=== PATIENT | female | born 1935 | race African-American/Black ===

== ENCOUNTER 2016-12-05 19:11 | Emergency (ER) | payer MEDICARE, BC ==
[~2016-12-05] VITALS: Ht 165.1 cm; Wt 103.2 kg
[~2016-12-05 19:11] MED LIST: ACIPHEX20 MG; ACTONEL35 MG; ALBUTEROL90 MCG IN; AVELOX400 MG OR; BENICAR20 MG PO; DOXYCYC MONO100 M3 PO; DOXYCYCL HYC100 MG PO; ELAVIL50 MG PO; FOLIC ACID1 MG PO; LASIX 40 MG40 MG/TAB PO; LASIX20 MG PO; LISINOPRIL20 MG PO; LORTAB 7.5 PO; LYRICA; LYRICA50 MG PO; MEDDOSEPAK PO; MELOXICAM7.5 MG; METFORMIN500 MG; METFORMIN500 MG PO; METOPROL TAR25 MG PO; METOPROL TAR50 MG PO; MICARDIS80 MG; NORVASC PO; PRAVACHOL40 MG PO; PRAVASTATIN40 MG PO; PRILOSEC20 MG/CAP PO; PROVENTIL0.083 %; SIMVASTATIN80 MG; SYNTHROID50 MCG PO; TORADOL PO; TRAMADOL; TRAMADOL HCL50 MG PO; VENTOLIN HFA IN; VESICARE5 MG; ZESTRIL/PRI20 MG/TAB PO; ZITHROMAX250 MG PO; ZPAK PO
[2016-12-05] MEDS ORDERED: AMITIZA24 MCG PO (20:01)
[2016-12-05] MEDS ORDERED: LOSARTAN POT25 MG PO (20:02)
[2016-12-05] MEDS ORDERED: MUCINEX600 MG PO (20:02)
[2016-12-05] MEDS ORDERED: [UNRECOGNIZED DRUG - OTHER] (20:04)
[2016-12-05 20:17] LABS: HEMATOCRIT 41.7 % (37.0-47.0); HEMOGLOBIN 13.1 g/dl (12.0-16.0); IMMATURE GRANULOCYTES 0.4 % (0.0-1.0); MEAN CELL VOLUME 86.9 fL CALC (80.0-100.0); MEAN CORPUSCULAR HGB 27.3 pG CALC (26.0-32.0); MEAN CORPUSCULAR HGB CONC 31.4 g/L CALC (32.0-36.0); NEUT# 2.9 thou/uL (2.00-7.15); RED BLOOD COUNT 4.8 mill/uL (4.20-5.60)
[2016-12-05 20:36] LABS: ALBUMIN 4.6 g/dL (3.2-5.0); ALKALINE PHOSPHATASE 79 u/l (38-126); ANION GAP 17 (6-22 (CALC)); BILIRUBIN, TOTAL 0.5 mg/dL (0.0-1.4); BUN 21 mg/dL (8-23); BUN/CREATININE RATIO 18 (12-20 (CALC)); CALCIUM 10.3 mg/dL (8.4-10.2); CARBON DIOXIDE 28 mmol/l (22-30); CHLORIDE 104 mmol/l (95-108); CREATININE 1.1 mg/dL (0.5-1.0); GFR 48 ML/MIN (>=60 (CALC)); GFR FOR AFR.AMER. 58 ML/MIN (>=60 (CALC)); GLUCOSE 93 mg/dL (82-115); INTERNATIONAL NORMALIZED RATIO 1.1 RATIO (0.7-1.3); POTASSIUM 4.3 mmol/l (3.5-5.1); PROTHROMBIN TIME 12.2 SECONDS (9.0-12.5); SGOT/AST 27 u/l (9-36); SGPT/ALT 32 u/l (11-66); SODIUM 144 mmol/l (137-146)
[2016-12-05 20:41] LABS: INFLUENZA A NONE DETECTED (NONE DETECT); INFLUENZA B NONE DETECTED (NONE DETECT)
[2016-12-05 20:47] LABS: MYOGLOBIN 58 ng/mL (0 - 62)
[2016-12-05 22:10] LABS: URINE BILIRUBIN - DIPSTICK NEGATIVE (NEGATIVE); URINE BLOOD DIPSTICK NEGATIVE (NEGATIVE); URINE CLARITY SLIGHT CLOUDY; URINE COLOR YELLOW; URINE GLUCOSE - DIPSTICK NEGATIVE (NEGATIVE); URINE KETONE NEGATIVE (NEGATIVE); URINE LEUK ESTERASE TRACE (NEGATIVE); URINE NITRITE - DIPSTICK NEGATIVE (Negative); URINE PH 5.5 (4.5-8.0); URINE PROTEIN - DIPSTICK NEGATIVE (NEG-TRACE); URINE SPECIFIC GRAVITY >=1.030; URINE UROBILINOGEN - DIPSTICK 0.2 E.U./dL (0.2)
[2016-12-05] MEDS ORDERED: ROBITUSSIN200 MG/10 PO (23:28)
[2016-12-05] MEDS ORDERED: AMOXICILLIN500 MG PO (23:28)
[2016-12-05 23:51] VITALS: BP 137/70
== END 2016-12-05 23:51 | disposition home or self-care (01) ==
LOC: ED 19:11
PROVIDERS: Emergency Medicine
DX: J44.1 Chronic obstructive pulmonary disease with (acute) exacerbation (principal); R05 Cough; R53.1 Weakness; R06.02 Shortness of breath; I10 Essential (primary) hypertension

== ENCOUNTER 2018-04-27 21:38 | Emergency (ER) | payer MEDICARE, BC ==
[~2018-04-27] VITALS: Ht 177.8 cm; Wt 105.2 kg
[~2018-04-27 21:38] MED LIST changes: +AMITIZA24 MCG PO; +AMOXICILLIN500 MG PO; +LOSARTAN POT25 MG PO; +MUCINEX600 MG PO; +ROBITUSSIN200 MG/10 PO; +[UNRECOGNIZED DRUG - OTHER]
[2018-04-27 22:36] LABS: HEMATOCRIT 37.7 % (37.0-47.0); HEMOGLOBIN 11.8 g/dl (12.0-16.0); IMMATURE GRANULOCYTES 0.3 % (0.0-5.0); MEAN CELL VOLUME 86.9 fL CALC (80.0-100.0); MEAN CORPUSCULAR HGB 27.2 pG CALC (26.0-32.0); MEAN CORPUSCULAR HGB CONC 31.3 g/L CALC (32.0-36.0); NEUT# 2.76 thou/uL (2.00-7.15); RED BLOOD COUNT 4.34 mill/uL (4.20-5.60); RED CELL DISTRI WIDTH 13.5 % (11.5-15.5)
[2018-04-27 22:49] LABS: ALBUMIN 3.8 g/dL (3.2-5.0); BILIRUBIN, TOTAL 0.3 mg/dL (0.0-1.4); CREATININE 1.3 mg/dL (0.5-1.0); POTASSIUM 3.6 mmol/l (3.5-5.1); TOTAL PROTEIN 7.3 g/dL (6.3-8.2)
[2018-04-27] MEDS ORDERED: TRADJENTA5 MG PO (22:51)
[2018-04-27] MEDS ORDERED: LYRICA150 M1 PO (22:53)
[2018-04-28 00:13] LABS: URINE BILIRUBIN - DIPSTICK NEGATIVE (NEGATIVE); URINE BLOOD DIPSTICK NEGATIVE (NEGATIVE); URINE COLOR YELLOW; URINE GLUCOSE - DIPSTICK NEGATIVE (NEGATIVE); URINE KETONE NEGATIVE (NEGATIVE); URINE NITRITE - DIPSTICK NEGATIVE (Negative); URINE PROTEIN - DIPSTICK NEGATIVE (NEG-TRACE); URINE SPECIFIC GRAVITY 1.015; URINE UROBILINOGEN - DIPSTICK 0.2 E.U./dL (0.2)
[2018-04-28 00:14] LABS: URINE CLARITY CLOUDY; URINE LEUK ESTERASE SMALL (NEGATIVE)
[2018-04-28 00:19] LABS: URINE BACTERIA FEW hpf; URINE HYALINE CAST FEW lpf (NONE-RARE); URINE MUCUS MODERATE hpf (NONE-FEW); URINE SQUAMOUS EPITHELIAL CELL MODERATE EPI/hpf (0-FEW)
[2018-04-28] MEDS ORDERED: MACRODANTIN100 MG PO (00:24)
[2018-04-28] MEDS ORDERED: MIRALAX3350 N1 PO (00:24)
[2018-04-28 00:43] VITALS: BP 142/72
== END 2018-04-28 00:43 | disposition home or self-care (01) ==
LOC: ED 21:38
PROVIDERS: Family Medicine
DX: N39.0 Urinary tract infection, site not specified (principal); K59.00 Constipation, unspecified; I10 Essential (primary) hypertension

== ENCOUNTER 2018-06-14 14:35 | Observation (INO) | payer MEDICARE, BC ==
[~2018-06-14] VITALS: Ht 177.8 cm; Wt 103.9 kg
[~2018-06-14 14:35] MED LIST changes: +LYRICA150 M1 PO; +MACRODANTIN100 MG PO; +MIRALAX3350 N1 PO; +TRADJENTA5 MG PO
[2018-06-14 15:49] LABS: HEMATOCRIT 39.9 % (37.0-47.0); HEMOGLOBIN 12.7 g/dl (12.0-16.0); IMMATURE GRANULOCYTES 0.4 % (0.0-5.0); MEAN CELL VOLUME 86.2 fL CALC (80.0-100.0); MEAN CORPUSCULAR HGB 27.4 pG CALC (26.0-32.0); MEAN CORPUSCULAR HGB CONC 31.8 g/L CALC (32.0-36.0); NEUT# 4.38 thou/uL (2.00-7.15); RED BLOOD COUNT 4.63 mill/uL (4.20-5.60); RED CELL DISTRI WIDTH 14.7 % (11.5-15.5)
[2018-06-14 16:11] LABS: INFLUENZA A NONE DETECTED (NONE DETECT); INFLUENZA B NONE DETECTED (NONE DETECT)
[2018-06-14 16:13] LABS: ANION GAP 12 (6-22 (CALC)); BUN 22 mg/dL (8-23); BUN/CREATININE RATIO 19 (12-20 (CALC)); CARBON DIOXIDE 29 mmol/l (22-30); CHLORIDE 107 mmol/l (95-108); CREATININE 1.2 mg/dL (0.5-1.0); GFR 43 ML/MIN (>=60 (CALC)); GFR FOR AFR.AMER. 52 ML/MIN (>=60 (CALC)); POTASSIUM 4.1 mmol/l (3.5-5.1); SODIUM 143 mmol/l (137-146)
[2018-06-14] MEDS ORDERED: TRADJENTA5 MG PO (17:32)
[2018-06-14] MEDS ORDERED: AMLODIPINE BESYL5 MG PO (17:32)
[2018-06-14] MEDS ORDERED: TRAMADOL HCL50 MG PO (17:36)
[2018-06-14 17:51] VITALS: BP 140/81
[2018-06-15 00:43] VITALS: BP 130/71
[2018-06-15 04:00] VITALS: BP 121/69
[2018-06-15 06:09] LABS: HEMATOCRIT 36.8 % (37.0-47.0); HEMOGLOBIN 11.8 g/dl (12.0-16.0); IMMATURE GRANULOCYTES 0.3 % (0.0-5.0); MEAN CELL VOLUME 86.2 fL CALC (80.0-100.0); MEAN CORPUSCULAR HGB 27.6 pG CALC (26.0-32.0); MEAN CORPUSCULAR HGB CONC 32.1 g/L CALC (32.0-36.0); NEUT# 2.03 thou/uL (2.00-7.15); RED BLOOD COUNT 4.27 mill/uL (4.20-5.60); RED CELL DISTRI WIDTH 14.8 % (11.5-15.5)
[2018-06-15 06:37] LABS: ALBUMIN 3.5 g/dL (3.2-5.0); BILIRUBIN, TOTAL 0.4 mg/dL (0.0-1.4); CREATININE 1.1 mg/dL (0.5-1.0); MAGNESIUM 1.5 mg/dL (1.6-2.3); POTASSIUM 4.1 mmol/l (3.5-5.1); TOTAL PROTEIN 6.7 g/dL (6.3-8.2)
[2018-06-15 08:19] VITALS: BP 123/44
[2018-06-15 10:49] LABS: CHOLESTEROL HDL RATIO 3.6 (<4.4 (CALC))
[2018-06-15 11:20] VITALS: BP 126/70
== END 2018-06-15 14:14 | disposition home or self-care (01) ==
LOC: ED 14:35 → ED-I 16:43 → ED 16:57 → MS2 16:58
PROVIDERS: Family Medicine; Nurse Practitioner Family; ADMIT Internal Medicine Nephrology; ATTEND Internal Medicine Nephrology
DX: R07.9 Chest pain, unspecified (principal); R55 Syncope and collapse; I12.9 Hypertensive chronic kidney disease with stage 1 through stage 4 chronic kidney disease, or unspecified chronic kidney disease; E11.22 Type 2 diabetes mellitus with diabetic chronic kidney disease; N18.3 Chronic kidney disease, stage 3 (moderate); K21.9 Gastro-esophageal reflux disease without esophagitis; E78.5 Hyperlipidemia, unspecified; E03.9 Hypothyroidism, unspecified; I42.8 Other cardiomyopathies; B02.29 Other postherpetic nervous system involvement

== ENCOUNTER 2018-07-06 17:41 | Emergency (ER) | payer MEDICARE, BC ==
[~2018-07-06] VITALS: Ht 177.8 cm; Wt 104.0 kg
[~2018-07-06 17:41] MED LIST changes: +AMLODIPINE BESYL5 MG PO
[2018-07-06 18:50] VITALS: BP 125/63
[2018-07-06] MEDS ORDERED: MYRBETRIQ25 MG PO (18:51)
[2018-07-06] MEDS ORDERED: PRAVASTATIN SOD40 MG PO (18:53)
[2018-07-06] MEDS ORDERED: LOSARTAN POT50 MG PO (18:54)
== END 2018-07-06 18:50 | disposition home or self-care (01) ==
LOC: ED 17:41
DX: M25.561 Pain in right knee (principal); M17.11 Unilateral primary osteoarthritis, right knee

== ENCOUNTER 2018-12-17 10:59 | Emergency (ER) | payer MEDICARE, BC ==
[~2018-12-17] VITALS: Ht 177.8 cm; Wt 104.1 kg
[~2018-12-17 10:59] MED LIST changes: +LOSARTAN POT50 MG PO; +MYRBETRIQ25 MG PO; +PRAVASTATIN SOD40 MG PO
[2018-12-17 12:36] LABS: IMMATURE GRANULOCYTES 0.4 % (0.0-5.0); MEAN CELL VOLUME 86.3 fL CALC (80.0-100.0); MEAN CORPUSCULAR HGB 26.8 pG CALC (26.0-32.0); NEUT# 2.16 thou/uL (2.00-7.15); RED BLOOD COUNT 5.12 mill/uL (4.20-5.60); RED CELL DISTRI WIDTH 14.1 % (11.5-15.5)
[2018-12-17 12:37] LABS: URINE BILIRUBIN - DIPSTICK NEGATIVE (NEGATIVE); URINE BLOOD DIPSTICK NEGATIVE (NEGATIVE); URINE COLOR YELLOW; URINE GLUCOSE - DIPSTICK NEGATIVE (NEGATIVE); URINE KETONE NEGATIVE (NEGATIVE); URINE NITRITE - DIPSTICK NEGATIVE (Negative); URINE PH 7.5 (4.5-8.0); URINE PROTEIN - DIPSTICK NEGATIVE (NEG-TRACE); URINE UROBILINOGEN - DIPSTICK 0.2 E.U./dL (0.2)
[2018-12-17 12:37] LABS: HEMATOCRIT 44.2 % (37.0-47.0); HEMOGLOBIN 13.7 g/dl (12.0-16.0)
[2018-12-17 12:39] LABS: URINE LEUK ESTERASE MODERATE (NEGATIVE)
[2018-12-17 12:43] LABS: URINE BACTERIA FEW hpf; URINE SQUAMOUS EPITHELIAL CELL MODERATE EPI/hpf (0-FEW)
[2018-12-17 13:05] LABS: CREATININE 1.1 mg/dL (0.5-1.0); POTASSIUM 4.3 mmol/l (3.5-5.1)
[2018-12-17 13:07] LABS: BILIRUBIN, TOTAL 0.6 mg/dL (0.0-1.4); TOTAL PROTEIN 9.1 g/dL (6.3-8.2)
[2018-12-17] MEDS ORDERED: CEPHALEXIN500 M1 PO (13:18)
[2018-12-17 13:29] VITALS: BP 154/85
== END 2018-12-17 13:29 | disposition home or self-care (01) ==
LOC: ED 10:59
PROVIDERS: Family Medicine
DX: N39.0 Urinary tract infection, site not specified (principal); M62.838 Other muscle spasm; E11.9 Type 2 diabetes mellitus without complications; J44.9 Chronic obstructive pulmonary disease, unspecified; I11.0 Hypertensive heart disease with heart failure; I50.9 Heart failure, unspecified

== ENCOUNTER 2022-07-01 13:08 | Emergency (ER) | payer MEDICARE, BC ==
[~2022-07-01] VITALS: Ht 177.8 cm; Wt 100.0 kg
[~2022-07-01 13:08] MED LIST changes: +ASPIRIN81 MG PO; +CARVEDILOL; +CEPHALEXIN500 M1 PO; +LASIX 40 MG TAB40 MG PO
[2022-07-01 13:23] VITALS: BP 152/103
[2022-07-01] MEDS ORDERED: ELIQUIS5 MG PO (13:47)
[2022-07-01 13:55] LABS: HEMATOCRIT 39.2 % (37.0-47.0); HEMOGLOBIN 12.5 g/dl (12.0-16.0); IMMATURE GRANULOCYTES 0.2 % (0.0-5.0); MEAN CELL VOLUME 87.7 fL CALC (80.0-100.0); MEAN CORPUSCULAR HGB CONC 31.9 g/dL CAL (32.0-36.0); NEUT# 1.52 thou/uL (2.00-7.15); RED BLOOD COUNT 4.47 mill/uL (4.20-5.60); RED CELL DISTRI WIDTH 14.1 % (11.5-15.5)
[2022-07-01 14:12] LABS: ALBUMIN 4.4 g/dL (3.2-5.0); CREATININE 1.1 mg/dL (0.5-1.0)
[2022-07-01 14:14] LABS: BILIRUBIN, TOTAL 0.9 mg/dL (0.0-1.4); POTASSIUM 5.3 mmol/l (3.5-5.1); TOTAL PROTEIN 8.6 g/dL (6.3-8.2)
[2022-07-01 14:56] VITALS: BP 151/78
[2022-07-01 16:49] LABS: URINE BILIRUBIN - DIPSTICK NEGATIVE (NEGATIVE); URINE BLOOD DIPSTICK NEGATIVE (NEGATIVE); URINE COLOR YELLOW; URINE GLUCOSE - DIPSTICK NEGATIVE (NEGATIVE); URINE KETONE NEGATIVE (NEGATIVE); URINE PROTEIN - DIPSTICK NEGATIVE (NEG-TRACE); URINE SPECIFIC GRAVITY 1.015; URINE UROBILINOGEN - DIPSTICK 0.2 E.U./dL (0.2)
[2022-07-01 16:52] LABS: URINE LEUK ESTERASE SMALL (NEGATIVE); URINE NITRITE - DIPSTICK NEGATIVE (Negative)
[2022-07-01 17:06] LABS: URINE RBC 0-2 RBC/hpf (0-5)
[2022-07-01 17:07] LABS: URINE SQUAMOUS EPITHELIAL CELL FEW EPI/hpf (0-FEW)
[2022-07-01 17:36] VITALS: BP 142/75
[2022-07-01 17:46] VITALS: BP 152/79
[2022-07-01 18:01] VITALS: BP 148/84
[2022-07-01 18:16] VITALS: BP 150/83
== END 2022-07-01 18:25 | disposition home or self-care (01) ==
LOC: ED 13:08
PROVIDERS: Family Medicine
DX: R07.9 Chest pain, unspecified (principal); I10 Essential (primary) hypertension; E11.9 Type 2 diabetes mellitus without complications

== ENCOUNTER 2022-10-13 15:32 | Emergency (ER) | payer MEDICARE, BC ==
[~2022-10-13] VITALS: Ht 177.8 cm; Wt 72.0 kg
[~2022-10-13 15:32] MED LIST changes: +ELIQUIS5 MG PO
[2022-10-13 16:10] VITALS: BP 158/99
[2022-10-13 17:00] VITALS: BP 142/78
[2022-10-13] MEDS ORDERED: METHOCARBAMOL500 MG PO (17:14)
[2022-10-13 17:38] VITALS: BP 142/78
== END 2022-10-13 17:50 | disposition home or self-care (01) ==
LOC: ED 15:32
DX: S16.1XXA Strain of muscle, fascia and tendon at neck level, initial encounter (principal); S09.90XA Unspecified injury of head, initial encounter; I10 Essential (primary) hypertension; W01.198A Fall on same level from slipping, tripping and stumbling with subsequent striking against other object, initial encounter; Y92.002 Bathroom of unspecified non-institutional (private) residence as the place of occurrence of the external cause; Z79.01 Long term (current) use of anticoagulants

== ENCOUNTER 2024-07-08 13:57 | Emergency (ER) | payer MEDICARE, BC ==
[~2024-07-08] VITALS: Ht 177.8 cm; Wt 108.0 kg
[~2024-07-08 13:57] MED LIST changes: +METHOCARBAMOL500 MG PO
[2024-07-08 14:09] VITALS: BP 149/73
[2024-07-08 14:22] LABS: BASO% 0.4 % (0-3); EOS% 0.9 % (0-8); HEMATOCRIT 34.4 % (37.0-47.0); HEMOGLOBIN 10.6 g/dl (12.0-16.0); LYMPH% 25.7 % (15-41); MEAN CELL VOLUME 88.9 fL CALC (80.0-100.0); MEAN CORPUSCULAR HGB 27.4 pG CALC (26.0-32.0); MEAN CORPUSCULAR HGB CONC 30.8 g/dL CAL (32.0-36.0); MONO% 12.2 % (2-13); NEUT# 2.75 thou/uL (2.00-7.15); NEUT% 60.8 % (42-76); RED BLOOD COUNT 3.87 mill/uL (4.20-5.60); RED CELL DISTRI WIDTH 14.5 % (11.5-15.5)
[2024-07-08 14:45] LABS: ALBUMIN 3.8 g/dL (3.2-5.0); BILIRUBIN, TOTAL 0.7 mg/dL (0.02-1.3); CREATININE 1.2 mg/dL (0.5-1.0); POTASSIUM 4.1 mmol/l (3.5-5.1); TOTAL PROTEIN 6.9 g/dL (6.3-8.2)
[2024-07-08 15:01] VITALS: BP 131/60
[2024-07-08 15:31] VITALS: BP 134/67
[2024-07-08 15:43] VITALS: BP 134/67
== END 2024-07-08 15:58 | disposition home or self-care (01) ==
LOC: ED 13:57
PROVIDERS: Family Medicine
DX: R42 Dizziness and giddiness (principal); I10 Essential (primary) hypertension; E11.9 Type 2 diabetes mellitus without complications

== ENCOUNTER 2024-09-04 17:47 | Emergency (ER) | payer MEDICARE, BC ==
[2024-09-04] VITALS (7 sets, daily range): BP systolic 123–157; BP diastolic 65–105
[~2024-09-04] VITALS: Ht 177.8 cm; Wt 98.0 kg
[2024-09-04] MEDS ORDERED: ASPIRIN 81 MG/TAB PO ONE (17:55)
[2024-09-04] MEDS ORDERED: IPRATROPIUM-Albuterol 0.5MG-2.5MG/3 ML NEB ONE ×2 (18:00)
[2024-09-04] MEDS ORDERED: methylPREDNISolone SODIUM SUCC 125 MG/2 ML SDV IV ONE (18:00)
[2024-09-04 18:28] LABS: BASO% 0.5 % (0-3); EOS% 4.3 % (0-8); HEMATOCRIT 36.6 % (37.0-47.0); HEMOGLOBIN 11.2 g/dl (12.0-16.0); IMMATURE GRANULOCYTES 0.2 % (0.0-5.0); LYMPH% 38.7 % (15-41); MEAN CELL VOLUME 88.8 fL CALC (80.0-100.0); MEAN CORPUSCULAR HGB 27.2 pG CALC (26.0-32.0); MEAN CORPUSCULAR HGB CONC 30.6 g/dL CAL (32.0-36.0); MONO% 12.8 % (2-13); NEUT# 1.9 thou/uL (2.00-7.15); NEUT% 43.5 % (42-76); RED BLOOD COUNT 4.12 mill/uL (4.20-5.60); RED CELL DISTRI WIDTH 15.5 % (11.5-15.5)
[2024-09-04 18:46] LABS: BILIRUBIN, TOTAL 0.5 mg/dL (0.02-1.3); CREATININE 1.5 mg/dL (0.5-1.0); POTASSIUM 3.8 mmol/l (3.5-5.1); TOTAL PROTEIN 7.4 g/dL (6.3-8.2)
[2024-09-04] MEDS ORDERED: ALBUTEROL SULFATE 8 GM INH IN ONE (19:10)
[2024-09-04] MEDS ORDERED: BENZONATATE 200 MG/CAP PO ONE (19:30)
[2024-09-04] MEDS ORDERED: BENZONATATE200 MG PO (19:36)
[2024-09-04] MEDS ORDERED: DECADRON4 MG PO (19:36)
[2024-09-04] MEDS ORDERED: ALBUTEROL108 MCG/AC PO (19:36)
[2024-09-06] MEDS ORDERED: COZAAR25 MG PO (02:19)
[2024-09-06] MEDS ORDERED: MIRALAX17 GM (02:19)
[2024-09-06] MEDS ORDERED: CARVEDILOL25 MG PO (08:26)
== END 2024-09-04 20:17 | disposition home or self-care (01) ==
LOC: ED 17:47
PROVIDERS: Nurse Practitioner
DX: J06.9 Acute upper respiratory infection, unspecified (principal); E11.40 Type 2 diabetes mellitus with diabetic neuropathy, unspecified; I10 Essential (primary) hypertension; Z20.822 Contact with and (suspected) exposure to COVID-19